=== PATIENT | male | born 1965 | race Caucasian/White ===

== ENCOUNTER 2016-12-11 14:22 | Observation (INO) | payer MEDICARE, OTHER ==
[2016-12-11 14:22] VITALS: BMI 35.4
[2016-12-11] MEDS ORDERED: Sodium Chloride 0.9% 1,000 ML IV STA (14:52)
--- NOTE | 2016-12-11 15:00 | ED PDOC ---
Lower Extremity Pain/Injury Time Seen by Provider: 12/11/16 14:34 Chief Complaint (Nursing): Lower Extremity Problem/Injury Chief Complaint (Provider): Left Knee Pain/Left Shoulder Pain History Per: Patient, Family (Patient's sister) Onset/Duration Of Symptoms: Hrs Current Symptoms Are (Timing): Still Present Additional Complaint(s): Brian Naik is a 51 year old male with a history of HTN, DM, and ataxia with residual speech deficits, the latter of which began as a result of a stroke 10 years ago, who presents to the ED after experiencing extreme left knee and left shoulder pain that began last night. Patient always uses a walker , but his sister reports that last night his knees were "locking up," and as a result he was unable to walk without severe pain. Patient also reports difficulty lifting his left arm due to the pain in his left shoulder. He denies any headache, difficulty breathing, or injury. He further denies any chest pain , SOB or RONDON. Patient took Ibuprofen last night and states this helped the pain. Sister at bedside states that he always sleeps in a reclining chair at home and she thinks that sleeping in the chair is causing this pain. PMD: Dr. Yanez Past Medical History Reviewed: Historical Data, Nursing Documentation, Vital Signs Vital Signs: Last Vital Signs Temp 98.2 F 12/11/16 14:27 Pulse 88 12/11/16 14:27 Resp 21 12/11/16 14:27 BP 141/81 12/11/16 14:27 Pulse Ox 98 12/11/16 14:27 - Medical History PMH: Arthritis, CVA, Diabetes, HTN Other PMH: ataxia x10 years - Surgical History Surgical History: No Surg Hx - Family History Family History: States: No Known Family Hx - Living Arrangements Living Arrangements: With Family - Social History Current smoker - smoking cessation education provided: No Alcohol: None Drugs: Denies - Home Medications Home Medications: Ambulatory Orders Medication Instructions Recorded Aspirin [Ecotrin] 81 mg PO DAILY 09/20/15 Atenolol 100 mg PO DAILY 09/20/15 Ergocalciferol (Vitamin D2) 50,000 unit PO QWK 09/20/15 [Vitamin D2] MetFORMIN [glucOPHAGE] 1,000 mg PO BID 09/20/15 - Allergies Allergies/Adverse Reactions: Allergies Allergy/AdvReac Type Severity Reaction Status Date / Time No Known Allergies Allergy Verified 04/05/14 12:18 Wells Criteria for PE - Wells Criteria for Pulmonary Embolism Clinical Signs and Symptoms of DVT: No P.E is #1 Diagnosis, or Equally Likely: No Heart Rate >100: No Immobilization at least 3 days;Surgery previous 4 weeks: No Previous, objectively diagnosed PE or DVT: No Hemoptysis: No Malignancy w/treatment within 6 months, or palliative: No Total Score: 0 Review of Systems ROS Statement: Except As Marked, All Systems Reviewed And Found Negative Review Of Systems: ROS cannot be obtained secondary to pt's inabilty to answer questions. Constitutional: Negative for: Fever, Chills Cardiovascular: Negative for: Chest Pain, Palpitations, Edema, Light Headedness Respiratory: Negative for: Cough, Shortness of Breath, SOB with Exertion Gastrointestinal: Negative for: Nausea, Vomiting Musculoskeletal: Positive for: Shoulder Pain (left shoulder pain), Leg Pain ( left knee pain) Neurological: Negative for: Weakness, Headache, Dizziness Physical Exam - Reviewed Nursing Documentation Reviewed: Yes Vital Signs Reviewed: Yes - Physical Exam Appears: Positive for: Non-toxic, No Acute Distress Head Exam: Positive for: ATRAUMATIC, NORMAL INSPECTION, NORMOCEPHALIC Skin: Positive for: Normal Color, Warm Eye Exam: Positive for: Normal appearance, EOMI, PERRL Neck: Positive for: Painless ROM. Negative for: Pain On Movement Of Neck Cardiovascular/Chest: Positive for: Regular Rate, Rhythm. Negative for: Murmur Respiratory: Positive for: Normal Breath Sounds. Negative for: Wheezing Back: Negative for: L CVA Tenderness, R CVA Tenderness, Vertebral Tenderness Extremity: Positive for: Capillary Refill (normal). Negative for: Normal ROM ( left knee full ROM with pain; limited ROM with pain of left upper exteremity, pain elicited with any movement of LUE, strong and equal bilateral hand airfield services officer), Pedal Edema, Calf Tenderness, Deformity Neurologic/Psych: Positive for: Alert, clearing distribution clerk II-XII (intact), Oriented, Other ( residual slurred speech from CVA 10 years ago). Negative for: Motor/Sensory Deficits, Facial Droop - Laboratory Results Result Diagrams: 12/11/16 15:00 12/11/16 15:00 - ECG Interpretation Of ECG: Normal sinus rhythm 90 bpm, no acute findings, reviewed by PA and ED attending. O2 Sat by Pulse Oximetry: 98 (RA) Pulse Ox Interpretation: Normal - Other Rad CXR X-Ray: Interpreted by Me, Viewed By Me X-Ray Interpretation: no acute finding Left knee x-ray X-Ray: Interpreted by Me, Viewed By Me X-Ray Interpretation: DJD, no fx, no dis Left shoulder x-ray X-Ray: Interpreted by Me, Viewed By Me X-Ray Interpretation: DJD, no fx, no dis Medical Decision Making Medical Decision Making: Impression: 51 year old with left knee and shoulder pain Plan: * CMP * CBC * Troponin * Urine culture * Urinalysis * Chest X-Ray * X-Ray Left Knee * X-Ray Left Shoulder * Sodium Chloride 1000 mL IV at 1000 mLs/hr * Toradol 30 mg IV * Reevaluation PMD is Dr. Yanez. Case was discussed with him. He agrees with admission to telemetry observation for rule out atypical cardiac presentation/ACS. Patient and family members at bedside are aware of and agree with admission. Case was discussed with hospitalist Dr. Barron regarding admission. Scribe Attestation: Documented by Monica Martin, acting as a scribe for Sita Liu PA-C. Provider Scribe Attestation: All medical record entries made by the Scribe were at my direction and personally dictated by me. I have reviewed the chart and agree that the record accurately reflects my personal performance of the history, physical exam, medical decision making, and the department course for this patient. I have also personally directed, reviewed, and agree with the discharge instructions and disposition. Disposition - Clinical Impression Clinical Impression: Left shoulder pain, Observation for suspected cardiovascular disease - Patient ED Disposition Is Patient to be Admitted: Yes - Disposition Disposition Time: 16:28 Condition: FAIR - Pt Status Changed To: Hospital Disposition Of: Observation Results - Lab Results Lab Results: 12/11/16 12/11/16 15:00 15:00 WBC 5.6 RBC 4.35 L Hgb 12.9 Hct 38.3 MCV 88.0 MCH 29.6 MCHC 33.6 RDW 13.4 Plt Count 180 MPV 8.9 Neut % (Auto) 73.0 Lymph % (Auto) 17.2 L [place] % (Auto) 7.5 Eos % (Auto) 1.8 Baso % (Auto) 0.5 Neut # 4.1 Lymph # 1.0 [place] # 0.4 Eos # 0.1 Baso # 0.0 Sodium 144 Potassium 4.0 Chloride 106 Carbon Dioxide 26 Anion Gap 16 BUN 18 Creatinine 0.5 L Est GFR ( Amer) > 60 Est GFR (Non-Af Amer) > 60 Random Glucose 136 H Calcium 9.4 Total Bilirubin 0.4 AST 25 ALT 25 Alkaline Phosphatase 92 Troponin I < 0.0120 Total Protein 8.0 Albumin 4.5 Globulin 3.5 Albumin/Globulin Ratio 1.3
[2016-12-11 15:14] LABS: BASO % 0.5 % (0.0-2.0); EOS # 0.1 K/uL (0.0-0.7); EOS % 1.8 % (0.0-4.0); HEMATOCRIT 38.3 % (35.0-51.0); LYMPH % 17.2 % (20.0-40.0); MEAN CORPUSCULAR HEMOGLOBIN 29.6 pg (27.0-31.0); MEAN CORPUSCULAR HGB CONC 33.6 g/dL (33.0-37.0); MEAN PLATELET VOLUME 8.9 fl (7.2-11.7); MONO # 0.4 K/uL (0.0-0.8); MONO % 7.5 % (0.0-10.0); NEUT # 4.1 K/uL (1.8-7.0); NRBC % 0.1 % (0.0-0.0); RED CELL DISTRIBUTION WIDTH 13.4 % (11.5-14.5); WHITE BLOOD COUNT 5.6 K/uL (4.8-10.8)
[2016-12-11 15:30] LABS: ALKALINE PHOSPHATASE 92 U/L (38-126); ALT/SGPT 25 U/L (21-72); AST/SGOT 25 U/L (17-59); BILIRUBIN,TOTAL 0.4 mg/dl (0.2-1.3); BLOOD UREA NITROGEN 18 mg/dl (9-20); CALCIUM 9.4 mg/dL (8.4-10.2); CARBON DIOXIDE 26 mmol/L (22-30); CHLORIDE 106 mmol/L (98-107); GFR AFRICAN-AMERICAN > 60; GLUCOSE,RANDOM 136 mg/dL (75-110); SODIUM 144 mmol/l (132-148)
[2016-12-11 15:34] LABS: ALB/GLOB RATIO 1.3 (1.0-2.1)
--- NOTE | 2016-12-11 16:19 | RAD ---
HISTORY: clearance COMPARISON: No prior. TECHNIQUE: Chest PA and lateral FINDINGS: LUNGS: Poor inspiration with low lung volumes, mild crowded bronchovascular markings and mild bibasilar atelectasis. PLEURA: No significant pleural effusion identified. No pneumothorax apparent. CARDIOVASCULAR: Heart size is within range of normal. Aorta is minimally ectatic. . OSSEOUS STRUCTURES: No significant abnormalities. VISUALIZED UPPER ABDOMEN: Normal. OTHER FINDINGS: None. IMPRESSION: No active disease.
--- NOTE | 2016-12-11 16:23 | RAD ---
PROCEDURE: Radiographs of the Left Shoulder HISTORY: trauma COMPARISON: No prior. FINDINGS: BONES: No evidence of acute displaced fracture nor dislocation. The osseous structures intact. . JOINTS: Mild DJD left glenohumeral and acromioclavicular joints. SOFT TISSUES: Normal. OTHER FINDINGS: None. IMPRESSION: No evidence of acute displaced fracture nor dislocation. Mild DJD as above
--- NOTE | 2016-12-11 16:24 | RAD ---
PROCEDURE: Left Knee Radiographs. HISTORY: Pain. COMPARISON: None. FINDINGS: BONES: . No evidence of acute displaced fracture nor dislocation. JOINTS: Mild degenerative osteoarthritis most notably affecting the medial compartment. . There is also small anterior superior patella enthesophyte. JOINT EFFUSION: No significant joint effusion OTHER FINDINGS: None. IMPRESSION: No acute fractures. Mild DJD most notably affecting the medial compartment with small anterior superior patella enthesophyte. .
--- NOTE | 2016-12-11 16:54 | CP.PCM.HP ---
History of Present Illness - History of Present Illness History of Present Illness: 51 year old male with PMH HTN, DM,familial ataxia , expressive aphasia , history of stroke 10 years ago, presented to ER complaining of severe pain to his left shoulder , unable to lift his arm, and pain to his knees unable to get up and walk. He uses a walker to walk.He took 2 ibuprofens with minimal relief of pain As per sister, he has been sleeping in a recliner chair for a long time. Patient denies any YBARRA, blurry vision, new weakness, SOB, palpitations. He denies any chest pain at present , urinary sx or changes in bowel movements. Allergies ; NKDA PMH ; HTN. DM , familial ataxia, history CVA Medications ; Metformin, atenolol, ASA, vitamin D Surgery ; None family history ; None Social history ; Lives in [place] with sister who takes care of him, walks with walker, denies smoking, ETOH or drug abuse ROS ; 14 point review of system negative except above PMD: Dr. Yanez Code status : Full Surrogate decision maker ; both sisters Present on Admission - Present on Admission Any Indicators Present on Admission: No Review of Systems - Review of Systems All systems: reviewed and no additional remarkable complaints except Past Patient History - Infectious Disease Hx of Infectious Diseases: None - Tetanus Immunizations Tetanus Immunization: Unknown - Past Medical History & Family History Past Medical History?: Yes Past Family History: Reviewed and not pertinent - Past Social History Smoking Status: Never Smoked Chewing Tobacco Use: No Cigar Use: No Alcohol: None Drugs: Denies Home Situation {Lives}: With Family Domestic Violence: Negative - CARDIAC Hx Cardiac Disorders: Yes Hx Hypertension: Yes - PULMONARY Hx Respiratory Disorders: No - NEUROLOGICAL Hx Neurological Disorder: Yes HX Cerebrovascular Accident: Yes Other/Comment: Ataxia - HEENT Hx HEENT Problems: No - RENAL Hx Chronic Kidney Disease: No - ENDOCRINE/METABOLIC Hx Endocrine Disorders: Yes Hx Diabetes Mellitus Type 2: Yes - HEMATOLOGICAL/ONCOLOGICAL Hx Blood Disorders: No - INTEGUMENTARY Hx Dermatological Problems: No - MUSCULOSKELETAL/RHEUMATOLOGICAL Hx Arthritis: Yes Hx Unsteady Gait: Yes - GASTROINTESTINAL Hx Gastrointestinal Disorders: Yes HX Swallowing Problems: Yes - GENITOURINARY/GYNECOLOGICAL Hx Genitourinary Disorders: No - PSYCHIATRIC Hx Psychophysiologic Disorder: No Hx Substance Use: No - SURGICAL HISTORY Hx Surgeries: No - ANESTHESIA Hx Anesthesia: No Hx Anesthesia Reactions: No Hx Malignant Hyperthermia: No Meds Allergies/Adverse Reactions: Allergies Allergy/AdvReac Type Severity Reaction Status Date / Time No Known Allergies Allergy Verified 04/05/14 12:18 Physical Exam - Constitutional Appears: Non-toxic, No Acute Distress, Chronically Ill - Head Exam Head Exam: NORMAL INSPECTION, NORMOCEPHALIC Additional comments: right facial droop - Eye Exam Eye Exam: EOMI, PERRL Pupil Exam: NORMAL ACCOMODATION - ENT Exam ENT Exam: Mucous Membranes Moist, Normal Exam - Neck Exam Neck exam: Positive for: Full Rom, Normal Inspection - Respiratory Exam Respiratory Exam: Clear to Auscultation Bilateral, NORMAL BREATHING PATTERN. absent: Rales, Rhonchi, Wheezes - Cardiovascular Exam Cardiovascular Exam: REGULAR RHYTHM, RRR, +S1, +S2. absent: JVD - GI/Abdominal Exam GI & Abdominal Exam: Normal Bowel Sounds, Soft. absent: Guarding, Rebound, Tenderness - Rectal Exam Rectal Exam: Deferred - Extremities Exam Extremities exam: Positive for: normal capillary refill, normal inspection, pedal pulses present. Negative for: calf tenderness, joint swelling, pedal edema Additional comments: Left shoulder tenderness and decreased ROM with movement - Back Exam Back exam: NORMAL INSPECTION - Neurological Exam Neurological exam: Alert, Oriented x3 Additional comments: right facial droop expressive aphasia - Psychiatric Exam Psychiatric exam: Normal Affect, Normal Mood - Skin Skin Exam: Dry, Normal Color, Warm Results - Vital Signs Recent Vital Signs: Last Vital Signs Temp 97.6 F 12/11/16 16:52 Pulse 90 12/11/16 16:52 Resp 18 12/11/16 16:52 BP 146/64 12/11/16 16:52 Pulse Ox 97 12/11/16 16:52 - Labs Result Diagrams: 12/11/16 15:00 12/11/16 15:00 - EKG Data EKG shows normal: Sinus rhythm Rate: Normal - Imaging and Cardiology Chest x-ray Additional comment: no active disease left shoulder Xray Additional comment: DJD changes, no fracture no dislocation left Knee Xray Additional comment: DJD changes Assessment & Plan - Assessment and Plan (Free Text) Assessment: 51 year old male with PMH HTN, DM,familial ataxia , expressive aphasia , history of stroke 10 years ago, presented to ER complaining of severe pain to his left shoulder , unable to lift his arm, and pain to his knees unable to get up and walk. He uses a walker to walk.He took 2 ibuprofens with minimal relief of pain As per sister, he has been sleeping in a recliner chair for a long time. Patient denies any YBARRA, blurry vision, new weakness, SOB, palpitations. He denies any chest pain at present , urinary sx or changes in bowel movements. 1. Suspected Chest pain--r/o ACS place patient under observation in telemtry Cycle Trop x 3, repeat EKG Continue ASa Check lipid profile resume Atenolol 2. Left shoulder and left knee DJD changes imaging reviewed Can use Motrin PRN for pain Will benefit from outpatient or home Physical therapy since patient has ataxia and walks with walker 3. Hypertension controlled Continue Atenolol 4. DM type II accuchecks, RISS Check Hgb A1c Resume Metformin 5. Ataxia / gait instability walks with walker Will benefit from physical therapy as outpatient 6.DVt prophylaxis SCD, lovenox
[2016-12-11] MEDS ORDERED: Ergocalciferol 50,000 Intl Units Cap PO SCH (18:45)
[2016-12-11 20:57] LABS: CHOLESTEROL 119 mg/dL (0-199)
[2016-12-11] MEDS: Insulin Lispro (humaLOG) 100 Units/ml Inj SC SCH (22:00)
[2016-12-12] MEDS: Insulin Lispro (humaLOG) 100 Units/ml Inj SC SCH ×2 (06:30→11:41)
[2016-12-12 08:00] VITALS: RESP 18
[2016-12-12] MEDS ORDERED: Pantoprazole 40 mg EC Tab PO SCH (09:00)
[2016-12-12] MEDS ORDERED: Enoxaparin 40 mg Syringe SC SCH (09:00)
[2016-12-12] MEDS ORDERED: ATENOLOL 100 MG TAB PO SCH (09:00)
--- NOTE | 2016-12-12 11:05 | CP.PCM.DIS ---
Provider - Provider Date of Admission: 12/11/16 16:28 Attending physician: Mati Barron MD Time Spent in preparation of Discharge (in minutes): 30 Hospital Course - Lab Results Lab Results: Most Recent Lab Values WBC 5.6 K/uL (4.8-10.8) 12/11/16 15:00 RBC 4.35 Mil/uL (4.40-5.90) L 12/11/16 15:00 Hgb 12.9 g/dL (12.0-18.0) 12/11/16 15:00 Hct 38.3 % (35.0-51.0) 12/11/16 15:00 MCV 88.0 fl (80.0-94.0) 12/11/16 15:00 MCH 29.6 pg (27.0-31.0) 12/11/16 15:00 MCHC 33.6 g/dL (33.0-37.0) 12/11/16 15:00 RDW 13.4 % (11.5-14.5) 12/11/16 15:00 Plt Count 180 K/uL (130-400) 12/11/16 15:00 MPV 8.9 fl (7.2-11.7) 12/11/16 15:00 Neut % (Auto) 73.0 % (50.0-75.0) 12/11/16 15:00 Lymph % (Auto) 17.2 % (20.0-40.0) L 12/11/16 15:00 [place] % (Auto) 7.5 % (0.0-10.0) 12/11/16 15:00 Eos % (Auto) 1.8 % (0.0-4.0) 12/11/16 15:00 Baso % (Auto) 0.5 % (0.0-2.0) 12/11/16 15:00 Neut # 4.1 K/uL (1.8-7.0) 12/11/16 15:00 Lymph # 1.0 K/uL (1.0-4.3) 12/11/16 15:00 [place] # 0.4 K/uL (0.0-0.8) 12/11/16 15:00 Eos # 0.1 K/uL (0.0-0.7) 12/11/16 15:00 Baso # 0.0 K/uL (0.0-0.2) 12/11/16 15:00 Sodium 144 mmol/l (132-148) 12/11/16 15:00 Potassium 4.0 MMOL/L (3.6-5.0) 12/11/16 15:00 Chloride 106 mmol/L (98-107) 12/11/16 15:00 Carbon Dioxide 26 mmol/L (22-30) 12/11/16 15:00 Anion Gap 16 (10-20) 12/11/16 15:00 BUN 18 mg/dl (9-20) 12/11/16 15:00 Creatinine 0.5 mg/dL (0.8-1.5) L 12/11/16 15:00 Est GFR ( Amer) > 60 12/11/16 15:00 Est GFR (Non-Af Amer) > 60 12/11/16 15:00 POC Glucose (mg/dL) 98 mg/dL (65-110) 12/12/16 05:48 Random Glucose 136 mg/dL (75-110) H 12/11/16 15:00 Calcium 9.4 mg/dL (8.4-10.2) 12/11/16 15:00 Total Bilirubin 0.4 mg/dl (0.2-1.3) 12/11/16 15:00 AST 25 U/L (17-59) 12/11/16 15:00 ALT 25 U/L (21-72) 12/11/16 15:00 Alkaline Phosphatase 92 U/L (38-126) 12/11/16 15:00 Troponin I < 0.0120 ng/mL (0.00-0.120) 12/12/16 09:50 Total Protein 8.0 G/DL (6.3-8.2) 12/11/16 15:00 Albumin 4.5 g/dL (3.5-5.0) 12/11/16 15:00 Globulin 3.5 gm/dL (2.2-3.9) 12/11/16 15:00 Albumin/Globulin Ratio 1.3 (1.0-2.1) 12/11/16 15:00 Triglycerides 100 mg/DL (0-149) 12/11/16 20:15 Cholesterol 119 mg/dL (0-199) 12/11/16 20:15 LDL Cholesterol Direct 69 mg/dL (0-129) 12/11/16 20:15 HDL Cholesterol 35 MG/DL (30-70) 12/11/16 20:15 - Hospital Course Hospital Course: 51 year old male with PMH HTN, DM,familial ataxia , expressive aphasia , history of stroke 10 years ago, presented to ER complaining of severe pain to his left shoulder , unable to lift his arm, and pain to his knees unable to get up and walk. He uses a walker to walk.He took 2 ibuprofens with minimal relief of pain As per sister, he has been sleeping in a recliner chair for a long time. Patient denies any YBARRA, blurry vision, new weakness, SOB, palpitations. He denies any chest pain at present , urinary sx or changes in bowel movements. Patient cardiac enzymes were negative. No active chest pain. Patient OK to be d/ c home with home PT for shoulder pain 1. Suspected Chest pain--r/o ACS place patient under observation in telemtry Cycle Trop x 3, repeat EKG Continue ASa Check lipid profile resume Atenolol 2. Left shoulder and left knee DJD changes imaging reviewed Can use Motrin PRN for pain Will benefit from outpatient or home Physical therapy since patient has ataxia and walks with walker 3. Hypertension controlled Continue Atenolol 4. DM type II accuchecks, RISS Check Hgb A1c Resume Metformin 5. Ataxia / gait instability walks with walker Will benefit from physical therapy as outpatient 6.DVt prophylaxis SCD, lovenox Discharge Exam - Head Exam Head Exam: ATRAUMATIC, NORMAL INSPECTION, NORMOCEPHALIC - Eye Exam Eye Exam: EOMI, Normal appearance, PERRL - ENT Exam ENT Exam: Mucous Membranes Moist, Normal Oropharynx - Respiratory Exam Respiratory Exam: Clear to PA & Lateral, NORMAL BREATHING PATTERN - Cardiovascular Exam Cardiovascular Exam: RRR, +S1, +S2 - GI/Abdominal Exam GI & Abdominal Exam: Normal Bowel Sounds, Soft. absent: Mass, Organomegaly, Tenderness - Extremities Exam Extremities exam: normal capillary refill, pedal pulses present - Back Exam Back exam: absent: CVA tenderness (L), CVA tenderness (R) - Neurological Exam Neurological exam: Alert, Reflexes Normal - Psychiatric Exam Psychiatric exam: Normal Affect, Normal Mood - Skin Skin Exam: Dry, Normal Color, Warm Discharge Plan - Discharge Medications Prescriptions: Aspirin [Ecotrin] 81 mg PO DAILY #30 Atenolol 100 mg PO DAILY #30 MetFORMIN [glucoPHAGE] 1,000 mg PO BID #60 - Follow Up Plan Condition: FAIR Disposition: HOME/ ROUTINE Additional Instructions: FOLLOW UP WITH PRIMARY CARE DOCTOR ONE WEEK FOLLOW UP WITH CARDIOLOGY ONE WEEK RESUME ACTIVITY TOLERATED RESUME DIET RETURN TO ER IF CONDITION RETURNS OR WORSENS.
[2016-12-12 12:39] VITALS: BP 121/71; PULSE 55; TEMP 97.9; O2SAT 98
== END 2016-12-12 14:20 | disposition home or self-care (01) ==
LOC: H.ER 14:22 → H.ERHOLD 16:28 → H.TEL 17:00
PROVIDERS: ADMIT Hospitalist; ATTEND Hospitalist
DX: M17.12 Unilateral primary osteoarthritis, left knee (principal); M19.012 Primary osteoarthritis, left shoulder; E11.9 Type 2 diabetes mellitus without complications; I10 Essential (primary) hypertension; I69.320 Aphasia following cerebral infarction; G11.9 Hereditary ataxia, unspecified
CPT/HCPCS: 36415; 71020; 73030; 73562; 80053; 80061; 82948; 83036; 84484; 85025; 99282; G0378; J1885; J7040

== ENCOUNTER 2018-01-21 16:04 | Emergency (ER) | payer MEDICARE, OTHER ==
[2018-01-21 16:04] VITALS: BMI 27.8
[2018-01-21 17:07] VITALS: O2SAT 98
[2018-01-21] MEDS ORDERED: Alum-Mag Hydrox-Simethicone Susp (30 mL) PO STA (17:59)
--- NOTE | 2018-01-21 18:25 | RAD ---
HISTORY: epigastric abdominla pain COMPARISON: Chest radiograph dated 12/11/2016. FINDINGS: LUNGS: No active pulmonary disease. PLEURA: No significant pleural effusion identified, no pneumothorax apparent. CARDIOVASCULAR: Atherosclerotic aortic calcifications. Cardiomediastinal silhouette within normal it's. OSSEOUS STRUCTURES: Unchanged. VISUALIZED UPPER ABDOMEN: Normal. OTHER FINDINGS: None. IMPRESSION: No active disease.
[2018-01-21] MEDS ORDERED: Alum-Mag Hydrox-Simethicone Susp (30 mL) ONE (18:27)
[2018-01-21 18:49] LABS: BASO % 0.5 % (0.0-2.0); EOS # 0.1 K/uL (0.0-0.7); EOS % 1.8 % (0.0-4.0); HEMOGLOBIN 13.2 g/dL (12.0-18.0); LYMPH # 1.2 K/uL (1.0-4.3); LYMPH % 23.7 % (20.0-40.0); MEAN CELL VOLUME 88.4 fl (80.0-94.0); MEAN CORPUSCULAR HEMOGLOBIN 30.2 pg (27.0-31.0); MEAN CORPUSCULAR HGB CONC 34.1 g/dL (33.0-37.0); MEAN PLATELET VOLUME 9.6 fl (7.2-11.7); MONO # 0.5 K/uL (0.0-0.8); MONO % 9.1 % (0.0-10.0); NEUT # 3.4 K/uL (1.8-7.0); NEUT % 64.9 % (50.0-75.0); NRBC % 0.1 % (0.0-0.0); RBC 4.36 Mil/uL (4.40-5.90); RED CELL DISTRIBUTION WIDTH 13.9 % (11.5-14.5); WHITE BLOOD COUNT 5.2 K/uL (4.8-10.8)
[2018-01-21 18:58] LABS: ALB/GLOB RATIO 1.3 (1.0-2.1); ALBUMIN 4.4 g/dL (3.5-5.0); CALCIUM 9.2 mg/dL (8.4-10.2); GFR AFRICAN-AMERICAN > 60; GFR NON-AFRICAN AMERICAN > 60; LIPASE 30 U/L (23-300)
[2018-01-21 19:10] LABS: ALT/SGPT 30 U/L (21-72); AST/SGOT 29 U/L (17-59); BLOOD UREA NITROGEN 22 mg/dl (9-20)
--- NOTE | 2018-01-21 19:23 | ED PDOC ---
HPI: Abdomen Time Seen by Provider: 01/21/18 17:19 Chief Complaint (Nursing): Abdominal Pain History Per: Patient Additional Complaint(s): Pt. presents with his sister and states over the past 2 days he's had non- radiating epigastric abdominal pain. Reports a hx of gastritis which was dx via endoscopy several months ago. States he was taking his gastritis medication ( does not remember name). Reports pain is worse after eating. Denies fever, chest pain, SOB, N/V/D, hematemesis, BRBPR, constipation, melena. Last BM was yesterday and normal. Past Medical History Reviewed: Historical Data, Nursing Documentation, Vital Signs Vital Signs: Last Vital Signs Temp 97.8 F 01/21/18 17:06 Pulse 55 L 01/21/18 20:01 Resp 16 01/21/18 17:06 BP 130/70 01/21/18 17:06 Pulse Ox 98 01/21/18 20:01 - Medical History PMH: Arthritis, CVA (with ataxia), Diabetes, HTN, Peripheral Edema Denies: Chronic Kidney Disease Other PMH: gastritis - Surgical History Surgical History: No Surg Hx - Family History Family History: States: No Known Family Hx - Home Medications Home Medications: Ambulatory Orders Medication Instructions Recorded Aspirin [Ecotrin] 81 mg PO DAILY #30 12/12/16 Atenolol 100 mg PO DAILY #30 12/12/16 MetFORMIN [glucoPHAGE] 1,000 mg PO DAILY 09/03/17 - Allergies Allergies/Adverse Reactions: Allergies Allergy/AdvReac Type Severity Reaction Status Date / Time No Known Allergies Allergy Verified 01/21/18 17:05 Review of Systems ROS Statement: Except As Marked, All Systems Reviewed And Found Negative Gastrointestinal: Positive for: Abdominal Pain Physical Exam - Physical Exam Appears: Positive for: Well, Non-toxic, No Acute Distress Skin: Positive for: Normal Color, Warm. Negative for: Rash Eye Exam: Positive for: Normal appearance. Negative for: Conjunctival injection , Scleral icterus Cardiovascular/Chest: Positive for: Regular Rate, Rhythm Respiratory: Positive for: CNT, Normal Breath Sounds Gastrointestinal/Abdominal: Positive for: Normal Exam, Bowel Sounds, Soft. Negative for: Tenderness Back: Positive for: Normal Inspection. Negative for: L CVA Tenderness, R CVA Tenderness Extremity: Negative for: Calf Tenderness (b/l) Neurologic/Psych: Positive for: Alert (x3), Oriented, Other (slurred speech ( chronic for patient)). Negative for: Aphasia - Laboratory Results Result Diagrams: 01/21/18 18:43 01/21/18 18:43 - ECG ECG: Positive for: Interpreted By Me ECG Rhythm: Positive for: Sinus Bradycardia. Negative for: ST/T Changes Rate: 55 O2 Sat by Pulse Oximetry: 98 - Progress ED Course And Treament: Labs, abd US, EKG, pepcid 20mg IV, maalox 30ml PO ordered. 2000 On re-evaluation, pt. reports moderate pain relief. Disposition - Clinical Impression Clinical Impression: Abdominal pain - Patient ED Disposition Is Patient to be Admitted: Transfer of Care (Signed out to Rakesh GRIFFITHS pending US report.) - Disposition Disposition Time: 20:00 Condition: IMPROVED Forms: [employer] (Ukrainian)
[2018-01-21 20:01] LABS: SQUAMOUS EPITHIAL 5 /hpf (0-5); URINE BACTERIA OCC (<OCC); URINE BILIRUBIN NEGATIVE (NEGATIVE); URINE CLARITY CLOUDY (Clear); URINE COLOR YELLOW (YELLOW); URINE GLUCOSE (UA) NEG (Normal); URINE LEUKOCYTE ESTERASE SMALL Leu/uL (Negative); URINE PROTEIN NEGATIVE (NEGATIVE)
[2018-01-21 20:06] LABS: URINE BLOOD SMALL (NEGATIVE)
--- NOTE | 2018-01-21 21:42 | ED PDOC ---
- Laboratory Results Result Diagrams: 01/21/18 18:43 01/21/18 18:43 - ECG O2 Sat by Pulse Oximetry: 98 - Progress ED Course And Treament: US ABDOMEN: FINDINGS: Liver: Unremarkable. Measures up to 14.4 cm. Gallbladder: Cholelithiasis. No evidence of gallbladder wall thickening. Common bile duct: Dilated measuring up to 8.7 mm. Pancreas: Not visualized. Kidneys: Right kidney measures 11.9 cm. Left kidney measures 12 cm. No hydronephrosis. Spleen: Measures 9.6 cm. No splenomegaly. Aorta: Unremarkable. No aneurysm. Inferior vena cava: Unremarkable. IMPRESSION: Cholelithiasis. No evidence of gallbladder wall thickening. The remainder of the findings are as described above. Thank you for allowing us to participate in the care of your patient. Dictated and Authenticated by: Arti Pierce MD d/w Dr. Rakesh MARTINEZ continuous process rotary drum tanner for Dr. Corbin Patient to f/u outpatient Disposition - Clinical Impression Clinical Impression: Abdominal pain - POA Present On Arrival: None - Disposition Referrals: Wilmer Corbin MD [Medical Doctor] - Disposition: Routine/Home Disposition Time: 21:41 Condition: FAIR Prescriptions: Famotidine [Pepcid] 20 mg PO BID #10 tab Instructions: Ulcer and Gastritis Diet, Gallstones (DC) Print Language: URUGUAYAN
[2018-01-21 22:10] VITALS: BP 130/72; PULSE 60; RESP 17; TEMP 98
--- NOTE | 2018-01-22 08:39 | US ---
HISTORY: epigastric abd pain COMPARISON: None. TECHNIQUE: Sonographic evaluation of the abdomen. FINDINGS: LIVER: Measures 14.4 cm. Normal echogenicity of the liver parenchyma. No mass. No intrahepatic bile duct dilatation. GALLBLADDER: Cholelithiasis without gallbladder wall thickening/edema or pericholecystic fluid. COMMON BILE DUCT: Dilated, measuring 9 mm. PANCREAS: Not well-visualized. RIGHT KIDNEY: Measures 11.9 x 4.4 x 5.3cm. Normal echogenicity. No calculus, mass, or hydronephrosis. LEFT KIDNEY: Measures 12.0 x 4.8 x 5.2cm. Normal echogenicity. No calculus, mass, or hydronephrosis. SPLEEN: Normal in size and contour. No mass. AORTA: No aneurysmal dilatation. IVC: Unremarkable. OTHER FINDINGS: None. IMPRESSION: Cholelithiasis without sonographic evidence for acute cholecystitis. Dilated CBD measuring up to 9 mm for which choledocholithiasis cannot be excluded. ER notification submitted electronically.
--- NOTE | 2018-01-24 10:22 | CARD ---
APPROVED REPORT EKG Measurement Heart [id number] <Conclusion> Sinus bradycardia with sinus arrhythmia Minimal voltage criteria for LVH, may be normal variant Borderline ECG
== END 2018-01-21 21:50 | disposition home or self-care (01) ==
LOC: H.ER 16:04
DX: R10.13 Epigastric pain (principal); K29.70 Gastritis, unspecified, without bleeding; R00.1 Bradycardia, unspecified; E11.9 Type 2 diabetes mellitus without complications; I10 Essential (primary) hypertension; Z79.82 Long term (current) use of aspirin; Z79.84 Long term (current) use of oral hypoglycemic drugs; Z86.73 Personal history of transient ischemic attack (TIA), and cerebral infarction without residual deficits; K80.20 Calculus of gallbladder without cholecystitis without obstruction
CPT/HCPCS: 71045; 76700; 80053; 81003; 83690; 84484; 85025; 93005; 96374; 96375; 99285; J2405